=== PATIENT | male | born 1975 | race Caucasian/White ===

== ENCOUNTER 2017-03-21 12:35 | Outpatient (CLI) ==
--- NOTE | 2017-03-21 13:58 | DI ---
EXAM: PA and lateral views of the chest HISTORY: Cough and chronic obstructive pulmonary disease COMPARISON: None FINDINGS: The cardiomediastinal silhouette is normal. There is no pneumothorax or pleural effusion. There is no consolidation, nodule or mass. The osseous structures demonstrate mild degenerative di sease of the spine. IMPRESSION: No acute cardiopulmonary process
== END 2017-03-21 12:36 | disposition home or self-care (01) ==
LOC: RAD 12:35
PROVIDERS: ATTEND Family Medicine
DX: J44.9 Chronic obstructive pulmonary disease, unspecified (principal); R05 Cough